=== PATIENT | female | born 1995 | race Two or more races ===

== ENCOUNTER 2017-09-11 15:50 | Emergency (ER) | payer OTHER ==
[2017-09-11] MEDS ORDERED: NS 0.9% 1000 ML* 1,000 ML IV ONE (17:40)
[2017-09-11 18:18] LABS: Hematocrit 39 % (35-47); Hemoglobin 12.7 g/dl (12.0-16.0); Mean Corpuscular HGB Conc 33 g/dl (31-36); Mean Corpuscular Hemoglobin 27 pg (27-31); Mean Corpuscular Volume 83 fL (80-97); Mean Platelet Volume 8 um3 (7.4-10.4); Red Blood Count 4.65 10^6/ul (4.0-5.4); Red Cell Distribution Width 15 % (10.5-15); White Blood Count 7.3 10^3/ul (3.5-10.8)
[2017-09-11 18:29] LABS: ALT 59 U/L (7-52); AST 31 U/L (13-39); Albumin 4.1 g/dL (3.2-5.2); Alkaline Phosphatase 53 U/L (34-104); Anion Gap 6 mmol/L (2-11); BUN/Creatinine Ratio 9.8 (8-20); Blood Urea Nitrogen 6 mg/dL (6-24); C Reactive Protein 10.52 mg/L (< 5.00); CO2 Carbon Dioxide 27 mmol/L (22-32); Calcium 9.4 mg/dL (8.6-10.3); Chloride 102 mmol/L (101-111); EGFR African American 160.8 (>60); Globulin 3.1 g/dL (2-4); Glucose 85 mg/dL (70-100); Lipase < 10 U/L (11.0-82.0); Potassium 3.8 mmol/L (3.5-5.0); Sodium 135 mmol/L (133-145); Total Protein 7.2 g/dL (6.4-8.9)
[2017-09-11 18:47] LABS: Urine Bilirubin Negative (Negative); Urine Glucose Negative (Negative); Urine Nitrite Negative (Negative)
--- NOTE | 2017-09-11 20:17 | RAD ---
Indication: Left lower quadrant pain. . Real-time sonography of the was performed. There is a single intrauterine gestation with heart activity at 169 bpm. Amniotic fluid is within normal limits. The mean crown-rump length is 2.3 cm corresponding to gestational age of 9 weeks 0 days. Estimated date of delivery April 11, 2018. Hypoechoic area in the anterior left uterine body may represent a fibroid or contraction. Right ovary measures 2.5 x 2.1 x 2.3 cm. Left ovary measures 2.1 x 1.3 x 1.6 cm. IMPRESSION: Single intrauterine gestation with a gestational age of 9 weeks 0 days. Estimated date of delivery April 11, 2018. Hypoechoic mass is noted in the anterior left uterine fundus which may represent a fibroid or a contraction.
--- NOTE | 2017-09-11 20:28 | ED ---
Angel Thibodeaux Thomas, scribed for Munira Avelar MD on 09/11/17 at 2025 . Progress - Progress Note Progress Note: The patient is a sign out from the previous ED attending, pending ultrasound and awaiting disposition. ultrasound shows Single intrauterine gestation with a gestational age of 9 weeks 0 days. Estimated date of delivery April 11, 2018. Hypoechoic mass is noted in the anterior left uterine fundus which may represent a fibroid or a contraction. ED physician has reviewed this report and agrees. Patient will be discharged home with follow up by NUTRITION TECH. Patient is instructed to take Tylenol for the pain. Condition at discharge is stable. Course/Dx - Diagnoses Provider Diagnoses: First trimester The documentation as recorded by the Angel redd Thomas accurately reflects the service I personally performed and the decisions made by Valentino denney Abdul, MD.
[2017-09-11 21:53] VITALS: BP 132/72
--- NOTE | 2017-09-12 08:03 | ED ---
Jose Thibodeaux Angela, scribed for Filippo Alanis MD on 09/11/17 at 1730 . Abdominal Pain/Female - HPI Summary HPI Summary: This pt is a 22 y/o female, currently , c/o LLQ pain x4 days. Pt reports that she does not know how far along she is in her . Pt additionally c/o nausea, epigastric abd discomfort. She denies vaginal bleeding , vaginal discharge, constipation, dysuria. She currently rates her pain 8/10 in severity. LMP: July 03. - History of Current Complaint Chief Complaint: EDAbdPain Stated Complaint: UNKOWN PREGGNANCY ABD PAIN Hx Obtained From: Patient ?: Yes - unknown weeks Onset/Duration: Lasting Days, Still Present Timing: Constant Severity Currently: Severe Pain Intensity: 8 Pain Scale Used: 0-10 Numeric Location: Discrete At: LLQ Radiates: No Associated Signs and Symptoms: Positive: Nausea. Negative: Constipation, Urinary Symptoms, Vaginal Bleeding, Vaginal Discharge, Vomiting Allergies/Adverse Reactions: Allergies Allergy/AdvReac Type Severity Reaction Status Date / Time No Known Allergies Allergy Verified 09/11/17 21:53 PMH/Surg Hx/FS Hx/Imm Hx Endocrine/Hematology History: Denies: Hx Diabetes Cardiovascular History: Denies: Hx Hypertension - Surgical History Surgery Procedure, Year, and Place: appendectomy Infectious Disease History: No Infectious Disease History: Denies: Traveled Outside the [place] in Last 30 Days - Family History Known Family History: Negative: Cardiac Disease, Hypertension, Diabetes - Social History Alcohol Use: None Substance Use Type: Reports: None Smoking Status (MU): Never Smoked Tobacco Review of Systems Negative: Fever, Chills Eyes: Negative ENT: Negative Positive: Abdominal Pain - LLQ and epigastric pain, Nausea. Negative: Other - constipation Negative: burning, dysuria, discharge, other - vaginal bleeding Skin: Negative Neurological: Negative All Other Systems Reviewed And Are Negative: Yes Physical Exam - Summary Physical Exam Summary: VITAL SIGNS: Reviewed. GENERAL: Patient is an obese female who is lying comfortable in the stretcher. Patient is not in any acute respiratory distress. HEAD AND FACE: Normocephalic and atraumatic. EYES: PERRLA, EOMI x 2, No injected conjunctiva. EARS: Hearing grossly intact. Ear canals and tympanic membranes are WNL. MOUTH: Oropharynx within normal limits. NECK: Supple, trachea is midline, no adenopathy, no JVD. CHEST: Symmetric, no tenderness at palpation LUNGS: Clear to auscultation bilaterally. No wheezing or crackles. CVS: RRR, S1 and S2 present, no murmurs or gallops appreciated. ABDOMEN: Soft. There is mild left lower quadrant tenderness. No signs of distention. Positive bowel sounds. No rebound no guarding, and no masses palpated. No abdominal bruit or pulsations. EXTREMITIES: FROM in all major joints, no edema, no cyanosis or clubbing. NEURO: Alert and oriented x 3. No acute neurological deficits. Speech is normal. SKIN: Dry and warm Triage Information Reviewed: Yes Vital Signs On Initial Exam: Initial Vitals Temp Pulse Resp BP Pulse Ox 97.0 F 73 20 130/70 100 09/11/17 15:51 09/11/17 15:51 09/11/17 15:51 09/11/17 15:51 09/11/17 15:51 Vital Signs Reviewed: Yes Diagnostics - Vital Signs Vital Signs Temp Pulse Resp BP Pulse Ox 09/11/17 15:51 97.0 F 73 20 130/70 100 - Laboratory Result Diagrams: 09/11/17 17:58 09/11/17 17:58 Lab Statement: Any lab studies that have been ordered have been reviewed, and results considered in the medical decision making process. Abdominal Pain Fem Course/Dx - Course Course Of Treatment: This pt is a 22 y/o female, currently , c/o LLQ pain x4 days. Pt reports that she does not know how far along she is in her . Pt additionally c/o nausea, epigastric abd discomfort. She denies vaginal bleeding, vaginal discharge, constipation, dysuria. She currently rates her pain 8/10 in severity. LMP: July 03. Lab tests were ordered. The pt was placed on a monitor and was given IV fluids. The blood tests and US are pending. I did not do a pelvic exam as there was no vaginal discharge or bleeding. She will be signed out to Dr. Aevlar to follow up on test results and for further assessment and management. - Diagnoses Provider Diagnoses: Abdominal pain Discharge - Discharge Plan Condition: Stable Disposition: OTHER Discharge Disposition Comment: signed out to Dr. Avelar, pending dispo, awaiting labs and US. Patient Education Materials: Acetaminophen (By mouth), (ED), First Trimester (ED) Referrals: Selene Gonzalez MD [Medical Doctor] - 7 Days No Primary Care Phys,NOPCP [Primary Care Provider] - Additional Instructions: Follow up with Dr. Gonzalez, TELECOMMUNICATIONS CLERK, next week. Take Tylenol for the pain. The documentation as recorded by the Jose redd Angela accurately reflects the service I personally performed and the decisions made by me, Filippo Alanis MD.
== END 2017-09-11 20:52 ==
LOC: ED 15:50
DX: Z34.91 Encounter for supervision of normal pregnancy, unspecified, first trimester (principal); R10.32 Left lower quadrant pain; R10.13 Epigastric pain; R11.0 Nausea
CPT/HCPCS: 36415; 76801; 80053; 81003; 83690; 84702; 85025; 86140; 99283

== ENCOUNTER 2017-10-06 09:00 | Emergency (ER) | payer MEDICAID, OTHER ==
[2017-10-06 10:07] LABS: ABS Basophils 0 10^3/ul (0-0.2); ABS Eosinophils 0 10^3/ul (0-0.6); ABS Lymphocytes 1.6 10^3/ul (1.0-4.8); ABS Monocytes 0.3 10^3/ul (0-0.8); ABS Neutrophils 4.5 10^3/ul (1.5-7.7); ABS Nucleated RBC 0 10^3/ul; Eosinophil % 0.4 % (0-6); Hematocrit 38 % (35-47); Hemoglobin 12.9 g/dl (12.0-16.0); Lymphocyte % 24.8 % (25-47); Mean Corpuscular HGB Conc 34 g/dl (31-36); Mean Corpuscular Hemoglobin 28 pg (27-31); Mean Corpuscular Volume 83 fL (80-97); Mean Platelet Volume 8 um3 (7.4-10.4); Nucleated Red Blood Cells % 0; Platelet Count 202 10^3/ul (150-450); Red Blood Count 4.53 10^6/ul (4.0-5.4); Red Cell Distribution Width 15 % (10.5-15); White Blood Count 6.5 10^3/ul (3.5-10.8)
[2017-10-06 10:22] LABS: EGFR Non-African American 127.5 (>60)
[2017-10-06 10:24] LABS: INR 0.99 (0.77-1.02)
--- NOTE | 2017-10-06 10:51 | ED ---
- HPI Summary HPI Summary: Patient is a 13 week F without proper OBGYN care or physician presents to the ED with CC of RUQ pain and vaginal spotting 1x yesterday without symptoms of such today. Physical exam and history obtained through the use of a devulcanizer loader using [employer]. Denies any vaginal bleeding during the until yesterday. RUQ pain is a 2/10 and does not radiate. She notes to some pain over the rib cage as well without difficultly breathing. Denies urinary symptoms, lower abdominal cramping or back pain. Denies any health history or medications but is currently on vitamins. Patient is and non-smoker. Denies history of HTN. - History of Current Complaint Chief Complaint: EDAbdPain Stated Complaint: 3 MONTHS PREG, SPOTING Time Seen by Provider: 10/06/17 09:11 Hx Obtained From: Patient Chief Complaint: Concern for Embryonic Dem, Pain, Vaginal Bleeding Onset/Duration: Started Days Ago Timing: Intermittent Severity: Mild Current Severity: Mild Pain Intensity: 3 Location of Pain: Right Side Character: Colicy Associated Signs and Symptoms: Positive: Vaginal Bleeding or Discharge - Allergies/Home Medications Allergies/Adverse Reactions: Allergies Allergy/AdvReac Type Severity Reaction Status Date / Time No Known Allergies Allergy Verified 09/11/17 21:53 PMH/Surg Hx/FS Hx/Imm Hx Previously Healthy: Yes Endocrine/Hematology History: Denies: Hx Diabetes Cardiovascular History: Denies: Hx Hypertension - Surgical History Surgery Procedure, Year, and Place: appendectomy - Immunization History Hx Pertussis Vaccination: No Immunizations Up to Date: Unable to Obtain/Confirm Infectious Disease History: No Infectious Disease History: Denies: Traveled Outside the [place] in Last 30 Days - Family History Known Family History: Negative: Cardiac Disease, Hypertension, Diabetes - Social History Occupation: Unemployed Lives: With Family Alcohol Use: None Hx Substance Use: No Substance Use Type: Reports: None Hx Tobacco Use: No Smoking Status (MU): Never Smoked Tobacco Review of Systems Constitutional: Negative Negative: Fever, Chills, Fatigue, Skin Diaphoresis Eyes: Negative ENT: Negative Cardiovascular: Negative Respiratory: Negative Positive: Abdominal Pain, Vomiting, Nausea Positive: no symptoms reported, see HPI, other - vaginal spotting x 1 Musculoskeletal: Negative Neurological: Negative All Other Systems Reviewed And Are Negative: Yes Physical Exam - Physical Exam Triage Information Reviewed: Yes Vital Signs Reviewed: Yes Appearance: Positive: Well-Appearing, No Pain Distress Skin: Positive: Warm, Skin Color Reflects Adequate Perfusion Head/Face: Positive: Normal Head/Face Inspection Eyes: Positive: EOMI, SHARON, Conjunctiva Clear Neck: Positive: Supple, No Lymphadenopathy Respiratory/Lung Sounds: Positive: Clear to Auscultation, Breath Sounds Present Cardiovascular: Positive: RRR, Pulses are Symmetrical in both Upper and Lower Extremities Abdomen Description: Positive: Soft, Other: - tenderness to the RUQ and right rib cage Neurological: Positive: Sensory/Motor Intact, Alert, Oriented to Person Place, Time, Speech Normal Psychiatric: Positive: Affect/Mood Appropriate Diagnostics - Vital Signs Vital Signs Temp Pulse Resp BP Pulse Ox 10/06/17 09:14 98.2 F 78 20 140/74 100 - Laboratory Lab Results: Lab Results 10/06/17 10/06/17 10/06/17 Range/Units 09:55 09:55 09:55 WBC 6.5 (3.5-10.8) 10^3/ul RBC 4.53 (4.0-5.4) 10^6/ul Hgb 12.9 (12.0-16.0) g/dl Hct 38 (35-47) % MCV 83 (80-97) fL MCH 28 (27-31) pg MCHC 34 (31-36) g/dl RDW 15 (10.5-15) % Plt Count 202 (150-450) 10^3/ul MPV 8 (7.4-10.4) um3 Neut % (Auto) 69.5 (38-83) % Lymph % (Auto) 24.8 L (25-47) % Maury % (Auto) 4.7 (1-9) % Eos % (Auto) 0.4 (0-6) % Baso % (Auto) 0.6 (0-2) % Absolute Neuts (auto) 4.5 (1.5-7.7) 10^3/ul Absolute Lymphs (auto) 1.6 (1.0-4.8) 10^3/ul Absolute Monos (auto) 0.3 (0-0.8) 10^3/ul Absolute Eos (auto) 0 (0-0.6) 10^3/ul Absolute Basos (auto) 0 (0-0.2) 10^3/ul Absolute Nucleated RBC 0 10^3/ul Nucleated RBC % 0 INR (Anticoag Therapy) 0.99 (0.77-1.02) Sodium (133-145) mmol/L Potassium (3.5-5.0) mmol/L Chloride (101-111) mmol/L Carbon Dioxide (22-32) mmol/L Anion Gap (2-11) mmol/L BUN (6-24) mg/dL Creatinine (0.51-0.95) mg/dL Est GFR ( Amer) (>60) Est GFR (Non-Af Amer) (>60) BUN/Creatinine Ratio (8-20) Glucose (70-100) mg/dL Calcium (8.6-10.3) mg/dL Magnesium (1.9-2.7) mg/dL Iron Total Bilirubin (0.2-1.0) mg/dL AST (13-39) U/L ALT (7-52) U/L Alkaline Phosphatase (34-104) U/L Total Protein (6.4-8.9) g/dL Albumin (3.2-5.2) g/dL Globulin (2-4) g/dL Albumin/Globulin Ratio (1-3) Lipase (11.0-82.0) U/L Beta HCG, Quant Blood Type O Positive 10/06/17 Range/Units 09:55 WBC (3.5-10.8) 10^3/ul RBC (4.0-5.4) 10^6/ul Hgb (12.0-16.0) g/dl Hct (35-47) % MCV (80-97) fL MCH (27-31) pg MCHC (31-36) g/dl RDW (10.5-15) % Plt Count (150-450) 10^3/ul MPV (7.4-10.4) um3 Neut % (Auto) (38-83) % Lymph % (Auto) (25-47) % Maury % (Auto) (1-9) % Eos % (Auto) (0-6) % Baso % (Auto) (0-2) % Absolute Neuts (auto) (1.5-7.7) 10^3/ul Absolute Lymphs (auto) (1.0-4.8) 10^3/ul Absolute Monos (auto) (0-0.8) 10^3/ul Absolute Eos (auto) (0-0.6) 10^3/ul Absolute Basos (auto) (0-0.2) 10^3/ul Absolute Nucleated RBC 10^3/ul Nucleated RBC % INR (Anticoag Therapy) (0.77-1.02) Sodium 133 (133-145) mmol/L Potassium 3.6 (3.5-5.0) mmol/L Chloride 102 (101-111) mmol/L Carbon Dioxide 23 (22-32) mmol/L Anion Gap 8 (2-11) mmol/L BUN 7 (6-24) mg/dL Creatinine 0.60 (0.51-0.95) mg/dL Est GFR ( Amer) 163.9 (>60) Est GFR (Non-Af Amer) 127.5 (>60) BUN/Creatinine Ratio 11.7 (8-20) Glucose 132 H (70-100) mg/dL Calcium 9.0 (8.6-10.3) mg/dL Magnesium 1.7 L (1.9-2.7) mg/dL Iron Pending Total Bilirubin 0.30 (0.2-1.0) mg/dL AST 16 (13-39) U/L ALT 29 (7-52) U/L Alkaline Phosphatase 67 (34-104) U/L Total Protein 6.9 (6.4-8.9) g/dL Albumin 3.9 (3.2-5.2) g/dL Globulin 3.0 (2-4) g/dL Albumin/Globulin Ratio 1.3 (1-3) Lipase < 10 L (11.0-82.0) U/L Beta HCG, Quant Pending Blood Type Result Diagrams: 10/06/17 09:55 10/06/17 09:55 Lab Statement: Any lab studies that have been ordered have been reviewed, and results considered in the medical decision making process. Course/Dx - Course Course Of Treatment: Patient presents with vaginal bleeding (spotting) x 1 day which resolved last evening. She notes to 3 day history of RUQ pain which is also located over the right ribs without difficulty breathing. Vomiting has been present throughout the and last vomit this am. US gallbladder and transvaginal obtained. IMPRESSION: No adnexal masses are noted. There is a single intrauterine gestation with a. gestational age of 13 weeks 0 days. Estimated date of delivery is April 13, 2018. . heart activity is noted at 1 49 bpm. IMPRESSION: NO EVIDENCE OF CHOLELITHIASIS OR BILIARY DUCT DILATATION IS NOTED. SHe is encouraged to take reglan for nausea. Referral to Dr. Russell given for established care. She is Ok with this plan and agrees to return for any worsening symptoms. I have discussed the possibility of pain related to which is normal vs pain from gallbladder. - Diagnoses Provider Diagnoses: Right upper quadrant abdominal pain, Vaginal spotting Discharge - Discharge Plan Condition: Stable Disposition: HOME Prescriptions: Metoclopramide TAB* [Reglan TAB*] 5 mg PO Q6H #30 tab MDD 4 Patient Education Materials: Metoclopramide (By mouth), (ED) Print Language: MACEDONIAN Referrals: Raf Russell MD [Medical Doctor] - No Primary Care Phys,NOPCP [Primary Care Provider] - Additional Instructions: Please follow up with OBGYN - call today to make an appt Reglan as needed for nausea/vomiting
--- NOTE | 2017-10-06 11:24 | RAD ---
Indication: Vaginal bleeding. Real-time sonography of the right upper quadrant was performed. Liver is normal in size. No focal lesions or intrahepatic duct dilatation is noted. Gallbladder demonstrates no calcified gallstones. No pericholecystic fluid or wall thickening is identified. The common duct measures 3.2 mm. The right kidney measures 10.7 x 6.5 x 4.6 cm with no hydronephrosis. The pancreas demonstrates no mass or pancreatic ductal dilatation. Aorta and inferior vena cava are unremarkable. IMPRESSION: NO EVIDENCE OF CHOLELITHIASIS OR BILIARY DUCT DILATATION IS NOTED.
--- NOTE | 2017-10-06 11:26 | RAD ---
Indication: . Real-time sonography of the was performed. There is a single intrarenal gestation with a crown-rump length of 6.7 cm corresponding to gestational age of 13 weeks 0 days. Estimated date of delivery is April 13, 2018. heart activity is noted at 1 49 bpm. movement is noted. There is a anterior fundal placenta. Amniotic fluid is within normal limits. The right ovary measures 2.7 x 2.3 x 1.8 cm. Left ovary measures 2.2 x 1.2 x 1.8 cm. IMPRESSION: No adnexal masses are noted. There is a single intrauterine gestation with a gestational age of 13 weeks 0 days. Estimated date of delivery is April 13, 2018. heart activity is noted at 1 49 bpm.
[2017-10-06 12:54] VITALS: BP 126/55
== END 2017-10-06 12:53 | disposition home or self-care (01) ==
LOC: ED 09:00
DX: O26.851 Spotting complicating pregnancy, first trimester (principal); O26.891 Other specified pregnancy related conditions, first trimester; Z3A.13 13 weeks gestation of pregnancy; R10.11 Right upper quadrant pain
CPT/HCPCS: 36415; 76705; 76801; 80053; 83540; 83690; 83735; 84702; 85025; 85610; 86900; 86901; 99282

== ENCOUNTER 2018-02-09 13:09 | Emergency (ER) | payer MEDICAID, OTHER ==
[2018-02-09 13:43] VITALS: BP 106/78
[2018-02-09 13:58] LABS: ABS Basophils 0 10^3/ul (0-0.2); ABS Eosinophils 0.1 10^3/ul (0-0.6); ABS Lymphocytes 1.6 10^3/ul (1.0-4.8); ABS Monocytes 0.5 10^3/ul (0-0.8); ABS Neutrophils 5.4 10^3/ul (1.5-7.7); ABS Nucleated RBC 0 10^3/ul; Eosinophil % 0.9 % (0-6); Hematocrit 38 % (35-47); Hemoglobin 12.6 g/dl (12.0-16.0); Lymphocyte % 21.2 % (25-47); Mean Corpuscular HGB Conc 34 g/dl (31-36); Mean Corpuscular Hemoglobin 28 pg (27-31); Mean Corpuscular Volume 83 fL (80-97); Nucleated Red Blood Cells % 0.1; Platelet Count 197 10^3/ul (150-450); Red Blood Count 4.52 10^6/ul (4.0-5.4); Red Cell Distribution Width 13 % (10.5-15); White Blood Count 7.5 10^3/ul (3.5-10.8)
[2018-02-09 14:12] LABS: EGFR Non-African American 150.3 (>60)
--- NOTE | 2018-02-09 15:02 | RAD ---
HISTORY: 7 months , leaking fluid, decreased movement. The gestational age by dates is: 31 weeks, 2 days COMPARISONS: October 06, 2017 TECHNIQUE: Multiple transverse and longitudinal ultrasound images were obtained of the gravid uterus using Grayscale, color Doppler, and M-mode Doppler imaging. FINDINGS: /PLACENTAL EVALUATION: Number of fetuses: Single Presentation: Cephalic cardiac activity: 144 bpm Gross motion: Observed Placenta position: Anterior Amniotic fluid volume: Normal JENNIFER: 15.4 cm. This is just over the median for this gestational age. BIOMETRY: Biparietal diameter: 7.72 cm 31 weeks, 0 days Head circumference: 30.07 cm 33 weeks, 3 days Abdominal circumference: 30.32 cm 34 weeks, 2 days Femur length: 6.02 cm 31 weeks, 3 days HC/AC: 0.99 Estimated weight: 2105 grams, +/- 308 grams GESTATIONAL AGE: The composite gestational age is: 32 weeks, 4 days. The JAMEL is: April 02, 2018. This is concordant with age by dates and by previous ultrasound. ANATOMY: cranium: Within normal limits ventricles: Within normal limits choroid plexus: Within normal limits cerebellum: Within normal limits posterior fossa: Within normal limits face/orbits/lips: Within normal limits spine: Within normal limits heart: Normal 4 chamber diaphragm: Within normal limits stomach: Within normal limits kidneys: Within normal limits bladder: Within normal limits cord: The cord and cord insertion are not well visualized. CERVIX: The cervix is not well visualized OTHER: None IMPRESSION: SINGLE LIVE INTRAUTERINE GESTATION IN CEPHALIC PRESENTATION AT 32 WEEKS, 4 DAYS BY COMPOSITE GESTATIONAL AGE.
--- NOTE | 2018-02-09 18:31 | ED ---
Ryan Thibodeaux Stephanie, scribed for Adrián Nunez MD on 02/09/18 at 1339 . Abdominal Pain/Female - HPI Summary HPI Summary: The pt is a 22 y/o F presenting to the ED with c/o abd pain that began last night. Symptoms include loss of fluid from the vagina and decreased movement. The pt is approximately 7 months and is due April 11. She denies fever and vomiting. - History of Current Complaint Chief Complaint: EDOBProblems Stated Complaint: OB PROBLEM Hx Obtained From: Patient ?: Yes Onset/Duration: Sudden Onset, Lasting Hours, Still Present Timing: Constant Severity Currently: Mild Pain Intensity: 4 Pain Scale Used: 0-10 Numeric Location: Epigastric Radiates: No Aggravating Factor(s): Nothing Alleviating Factor(s): Nothing Associated Signs and Symptoms: Negative: Fever, Vomiting Allergies/Adverse Reactions: Allergies Allergy/AdvReac Type Severity Reaction Status Date / Time No Known Allergies Allergy Verified 02/09/18 14:53 PMH/Surg Hx/FS Hx/Imm Hx Endocrine/Hematology History: Denies: Hx Diabetes Cardiovascular History: Denies: Hx Hypertension Sensory History: Denies: Hx Legally Blind EENT History: Denies: Hx Deafness - Surgical History Surgery Procedure, Year, and Place: appendectomy Infectious Disease History: No Infectious Disease History: Denies: Traveled Outside the [place] in Last 30 Days - Family History Known Family History: Negative: Cardiac Disease, Hypertension, Diabetes - Social History Occupation: Unemployed Lives: Alone Alcohol Use: None Hx Substance Use: No Substance Use Type: Reports: None Hx Tobacco Use: No Smoking Status (MU): Never Smoked Tobacco Have You Smoked in the Last Year: No Review of Systems Negative: Fever Positive: Abdominal Pain. Negative: Vomiting All Other Systems Reviewed And Are Negative: Yes Physical Exam - Summary Physical Exam Summary: Appearance: Well appearing, no pain distress Skin: warm, dry, reflects adequate perfusion Head/face: normal Eyes: EOMI, SHARON ENT: normal Neck: supple, non-tender Respiratory: CTA, breath sounds present, Tachypnic Cardiovascular: regular rhythm, tachycardic, pulses symmetrical Abdomen: non-tender, soft, Fundus palpable at the xiphoid Bowel Sounds: present Musculoskeletal: normal, strength/ROM intact, No LE edema bilaterally Neuro: normal, sensory motor intact, A&Ox3 Abdominal US:Gross movement, head is down in vertex position, heart tone, very minimal fluid Triage Information Reviewed: Yes Vital Signs On Initial Exam: Initial Vitals Temp Pulse Resp BP Pulse Ox 97.4 F 108 16 128/69 100 02/09/18 13:17 02/09/18 13:17 02/09/18 13:17 02/09/18 13:17 02/09/18 13:17 Vital Signs Reviewed: Yes Diagnostics - Vital Signs Vital Signs Temp Pulse Resp BP Pulse Ox 02/09/18 13:17 97.4 F 108 16 128/69 100 - Laboratory Lab Results: Lab Results 02/09/18 02/09/18 02/09/18 Range/Units 13:40 13:40 13:40 WBC 7.5 (3.5-10.8) 10^3/ul RBC 4.52 (4.0-5.4) 10^6/ul Hgb 12.6 (12.0-16.0) g/dl Hct 38 (35-47) % MCV 83 (80-97) fL MCH 28 (27-31) pg MCHC 34 (31-36) g/dl RDW 13 (10.5-15) % Plt Count 197 (150-450) 10^3/ul MPV 8.0 (7.4-10.4) um3 Neut % (Auto) 71.2 (38-83) % Lymph % (Auto) 21.2 L (25-47) % [place] % (Auto) 6.6 (0-7) % Eos % (Auto) 0.9 (0-6) % Baso % (Auto) 0.1 (0-2) % Absolute Neuts (auto) 5.4 (1.5-7.7) 10^3/ul Absolute Lymphs (auto) 1.6 (1.0-4.8) 10^3/ul Absolute Monos (auto) 0.5 (0-0.8) 10^3/ul Absolute Eos (auto) 0.1 (0-0.6) 10^3/ul Absolute Basos (auto) 0 (0-0.2) 10^3/ul Absolute Nucleated RBC 0 10^3/ul Nucleated RBC % 0.1 Sodium 136 L (139-145) mmol/L Potassium 3.8 (3.5-5.0) mmol/L Chloride 105 (101-111) mmol/L Carbon Dioxide 23 (22-32) mmol/L Anion Gap 8 (2-11) mmol/L BUN 6 (6-24) mg/dL Creatinine 0.52 (0.51-0.95) mg/dL Est GFR ( Amer) 193.3 (>60) Est GFR (Non-Af Amer) 150.3 (>60) BUN/Creatinine Ratio 11.5 (8-20) Glucose 143 H (70-100) mg/dL Calcium 9.3 (8.6-10.3) mg/dL Total Bilirubin 0.30 (0.2-1.0) mg/dL AST 16 (13-39) U/L ALT 20 (7-52) U/L Alkaline Phosphatase 172 H (34-104) U/L Total Protein 6.7 (6.4-8.9) g/dL Albumin 3.4 (3.2-5.2) g/dL Globulin 3.3 (2-4) g/dL Albumin/Globulin Ratio 1.0 (1-3) Blood Type O Positive Antibody Screen Negative Result Diagrams: 02/09/18 13:40 02/09/18 13:40 Lab Statement: Any lab studies that have been ordered have been reviewed, and results considered in the medical decision making process. Abdominal Pain Fem Course/Dx - Course Course Of Treatment: On arrival I placed a bedside ultrasound on the fetus. There is some movement evident as well as there heart tones. Her fluid did appear low however this was a limited/preliminary ultrasound performed by me. She does have reported leaking of clear fluid vaginally. I then discussed the case with the drink waiter who wishes for the patient to be taken directly to the labor and delivery suite. She was transferred from the ER to that location. She remained stable throughout. Her blood was drawn here. - Diagnoses Provider Diagnoses: premature rupture of membranes, Decreased movement Discharge - Sign-Out/Discharge Documenting (check all that apply): Discharge/Admit/Transfer - discharge - Discharge Plan Condition: Stable Disposition: TRANSFER TO OB ([facility]) Referrals: No Primary Care Phys,NOPCP [Primary Care Provider] - - Billing Disposition and Condition Condition: STABLE Disposition: TRANS-OB The documentation as recorded by the scribe, Ryan,Tania accurately reflects the service I personally performed and the decisions made by me, Adrián Nunez MD.
== END 2018-02-09 13:43 | disposition other institution (70) ==
LOC: ED 13:09
DX: O42.913 Preterm premature rupture of membranes, unspecified as to length of time between rupture and onset of labor, third trimester (principal); R10.9 Unspecified abdominal pain; Z3A.30 30 weeks gestation of pregnancy
CPT/HCPCS: 36415; 76815; 80053; 85025; 86850; 86900; 86901; 99282

== ENCOUNTER 2018-03-17 15:07 | Emergency (ER) | payer OTHER ==
[2018-03-17 16:51] LABS: ABS Basophils 0 10^3/ul (0-0.2); ABS Eosinophils 0 10^3/ul (0-0.6); ABS Lymphocytes 2.2 10^3/ul (1.0-4.8); ABS Monocytes 0.5 10^3/ul (0-0.8); ABS Neutrophils 4.6 10^3/ul (1.5-7.7); ABS Nucleated RBC 0 10^3/ul; Eosinophil % 0.6 % (0-6); Hematocrit 37 % (35-47); Hemoglobin 12.6 g/dl (12.0-16.0); Lymphocyte % 30.2 % (25-47); Mean Corpuscular HGB Conc 34 g/dl (31-36); Mean Corpuscular Hemoglobin 28 pg (27-31); Mean Corpuscular Volume 82 fL (80-97); Mean Platelet Volume 8.1 um3 (7.4-10.4); Nucleated Red Blood Cells % 0.1; Platelet Count 177 10^3/ul (150-450); Red Blood Count 4.52 10^6/ul (4.0-5.4); Red Cell Distribution Width 14 % (10.5-15); White Blood Count 7.4 10^3/ul (3.5-10.8)
[2018-03-17 17:07] LABS: Uric Acid 4.1 mg/dL (2.3-6.6)
[2018-03-17 17:36] LABS: EGFR Non-African American 101.6 (>60)
--- NOTE | 2018-03-17 17:50 | RAD ---
Indication: Bilateral leg edema Duplex Doppler sonography of the deep venous system of both lower extremities was performed. The left common femoral vein, proximal greater saphenous vein, proximal deep femoral vein, femoral vein, popliteal vein, posterior tibial vein and peroneal vein is patent and compressible. The right lower extremity demonstrates venous stasis. Augmentation does demonstrate some flow although the patient would not allow compression and therefore the right lower extremity study is limited. There are lymph nodes in the area of pain in the right proximal thigh. IMPRESSION: The left lower extremity demonstrates no evidence of deep venous thrombosis. Slow flow is noted in the deep venous system of the right lower extremity although the patient would not allow compression and therefore is limited in evaluation.
[2018-03-17] MEDS ORDERED: Acetaminophen TAB* 325 MG PO ONE (18:03)
[2018-03-17 19:05] LABS: Urine Appearance Cloudy; Urine Blood Negative (Negative); Urine Color Yellow; Urine Ketones Trace (Negative); Urine Protein 2+(100 mg/dL) (Negative); Urine Specific Gravity 1.017 (1.010-1.030); Urine Urobilinogen Negative (Negative)
[2018-03-17 20:07] VITALS: BP 142/94
--- NOTE | 2018-03-17 21:18 | ED ---
Jose Thibodeaux Angela, scribed for Ryan Blum MD on 03/17/18 at 1809 . Progress - Progress Note Progress Note: This pt was signed out by Dr. Alanis, pending disposition, awaiting US of bilateral lower extremities. US of bilateral lower extremities, as read by radiologist IMPRESSION: The left lower extremity demonstrates no evidence of deep venous thrombosis. Slow flow is noted in the deep venous system of the right lower extremity although the patient would not allow compression and therefore is limited in evaluation. Dr. Blum has reviewed this radiology report. Re-Evaluation - Re-Evaluation First Eval Re-Evaluation Time: 19:00 Comment: Reviewed the ultrasound results with the pt. Second Eval Re-Evaluation Time: 19:44 Comment: I discussed Dr. Chaudhary's recommendation with the pt. She will be discharged home. Course/Dx - Course Course Of Treatment: Ms. Trell Cates presented to the emergency department complaining of pain and swelling in her right leg. She is 36 weeks and was sent over by Dr. Thomson. Venous Doppler on the right did show flow but was limited because she had significant pain and would not allow compression. There was lymphadenopathy in the area of pain. This result suggests DVT is less likely and her exam confirms that she is acutely tender in the proximal common femoral canal area. I recommended close follow-up, she may need an antibiotic. - Diagnoses Provider Diagnoses: Leg pain - Provider Notifications Discussed Care Of Patient With: Edwin Chaudhary Time Discussed With Above Provider: 19:35 Instructed by Provider To: Other - I discussed pt care with Dr. Chaudhary, OB, who reports the pt probably has ligament pain and can be discharged home. Discharge - Sign-Out/Discharge Documenting (check all that apply): Discharge/Admit/Transfer - Discharge, Receiving Sign-Out Receiving patient FROM: Filippo Alanis - Discharge Plan Condition: Stable Disposition: HOME Prescriptions: traMADol TAB* [Ultram*] 50 mg PO Q6HR PRN #20 tab MDD 4 PRN Reason: Pain Patient Education Materials: Leg Pain (ED) Print Language: CROATIAN Referrals: Raf Russell MD [Medical Doctor] - Additional Instructions: Please follow up with Dr. Russell, OB. RETURN TO THE ED FOR ANY WORSENING SYMPTOMS. - Billing Disposition and Condition Condition: STABLE Disposition: Home The documentation as recorded by the Jose redd Angela accurately reflects the service I personally performed and the decisions made by me, Ryan Blum MD.
--- NOTE | 2018-03-18 11:41 | ED ---
Jose Thibodeaux Angela, scribed for Filippo Alanis MD on 03/17/18 at 1627 . Lower Extremity - HPI Summary HPI Summary: This pt is a 22 y/o female, currently 36 weeks , presenting to [facility] for bilateral lower extremity swelling and pain. Pt reports the onset of lower extremity swelling and pain in the legs began approximately 10 days ago. Denies any trauma or injury to her legs. Pt notes that since 4 days ago she has had difficulty getting up from bed secondary to pain. Additionally she reports she has to drag her feet due to the severe pain when ambulating. Pt has noticed her legs have began to bruise. Denies vaginal discharge, vaginal bleeding, SOB. Pt does reports headache, nausea, and dysuria. She is able to feel movements. Her OB is Dr. Raf Russell. Pt had a ultrasound today and was referred to the ED for bilateral LE swelling and pain. - History of Current Complaint Chief Complaint: EDExtremityLower Stated Complaint: TOE INJURY Hx Obtained From: Patient Mechanism Of Injury: Other - No trauma or injury Onset of Pain: Days Onset/Duration: Days Severity Currently: Severe Pain Intensity: 9 Pain Scale Used: 0-10 Numeric Timing: Lasting Days Location: Is Discrete @ - bilateral lower extremities Associated Signs And Symptoms: Positive: Swelling, Bruising. Negative: Fever, Weakness, Dizziness, Abdominal Pain Aggravating Factor(s): Ambulation Alleviating Factor(s): Rest Able to Bear Weight: Yes - dragging her feet - Allergies/Home Medications Allergies/Adverse Reactions: Allergies Allergy/AdvReac Type Severity Reaction Status Date / Time No Known Allergies Allergy Verified 03/17/18 15:13 Home Medications: Home Medications Vitamin TAB* 1 tab PO DAILY 03/17/18 [History Confirmed 03/17/18] PMH/Surg Hx/FS Hx/Imm Hx Endocrine/Hematology History: Denies: Hx Diabetes Cardiovascular History: Denies: Hx Hypertension History: Reports: Hx Kidney Infection - hx UTI - Surgical History Surgery Procedure, Year, and Place: appendectomy Infectious Disease History: No Infectious Disease History: Denies: Traveled Outside the [place] in Last 30 Days - Family History Known Family History: Negative: Cardiac Disease, Hypertension, Diabetes - Social History Alcohol Use: None Hx Substance Use: No Substance Use Type: Reports: None Hx Tobacco Use: No Smoking Status (MU): Never Smoked Tobacco Have You Smoked in the Last Year: No Review of Systems Negative: Fever Negative: Chest Pain Negative: Shortness Of Breath Positive: Nausea Negative: discharge, other - vaginal bleeding Musculoskeletal: Other - bilateral lower extremity pain Positive: Edema - in bilateral LE Positive: Bruising - right thigh Positive: Headache All Other Systems Reviewed And Are Negative: Yes Physical Exam - Summary Physical Exam Summary: VITAL SIGNS: Reviewed. GENERAL: Patient is an obese female who is lying comfortable in the stretcher. Patient is not in any acute respiratory distress. HEAD AND FACE: No signs of trauma. No ecchymosis, hematomas or skull depressions. No sinus tenderness. EYES: PERRLA, EOMI x 2, No injected conjunctiva, no nystagmus. EARS: Hearing grossly intact. Ear canals and tympanic membranes are within normal limits. MOUTH: Oropharynx within normal limits. NECK: Supple, trachea is midline, no adenopathy, no JVD, no carotid bruit, no c- spine tenderness, neck with full ROM. CHEST: Symmetric, no tenderness at palpation LUNGS: Clear to auscultation bilaterally. No wheezing or crackles. CVS: Regular rate and rhythm, S1 and S2 present, no murmurs or gallops appreciated. ABDOMEN: Soft, non-tender. No signs of distention. No rebound no guarding, and no masses palpated. Bowel sounds are normal. EXTREMITIES: FROM in all major joints, no cyanosis or clubbing. Tenderness in both calfs. Tenderness in both thighs. Right leg is more swollen than the left. Good femoral and pedal pulses. NEURO: Alert and oriented x 3. No acute neurological deficits. Speech is normal and follows commands. SKIN: Dry and warm Triage Information Reviewed: Yes Vital Signs On Initial Exam: Initial Vitals Temp Pulse Resp BP Pulse Ox 96.8 F 86 16 145/85 99 03/17/18 15:09 03/17/18 15:09 03/17/18 15:03/17/18 15:03/17/18 15:09 Vital Signs Reviewed: Yes Diagnostics - Vital Signs Vital Signs Temp Pulse Resp BP Pulse Ox 03/17/18 15:09 96.8 F 86 16 145/85 99 - Laboratory Result Diagrams: 03/17/18 16:38 03/17/18 16:38 Lab Statement: Any lab studies that have been ordered have been reviewed, and results considered in the medical decision making process. Lower Extremity Course/Dx - Course Assessment/Plan: Pt is a 22 y/o female, currently 36 weeks , who presents with bilateral lower extremity swelling and pain. Pt reports the onset of lower extremity swelling began when she became . She states that her pain in the legs began approximately 10 days ago. Denies any trauma or injury to her legs. Pt notes that since 4 days ago she has had difficulty getting up from bed secondary to pain. Additionally she reports she has to drag her feet due to the severe pain when ambulating. Pt has noticed her legs have began to bruise. Test results without any significant abnormalities except for CRP of 18.9. She is awaiting for an ultrasound of bilateral lower extremities. She is hemodynamicallly stable, alert and oriented x3. I will sign out this pt to Dr. Blum to follow up on the ultrasound and if need be to discuss the case with Dr. Russell. - Diagnoses Provider Diagnoses: Bilateral lower extremity edema, Bilateral lower extremity pain Discharge - Sign-Out/Discharge Documenting (check all that apply): Sign-Out Patient Signing out patient TO: Ryan Blum - Discharge Plan Referrals: Raf Russell MD [Medical Doctor] - The documentation as recorded by the Jose redd Angela accurately reflects the service I personally performed and the decisions made by , Filippo Alanis MD.
== END 2018-03-17 20:06 | disposition home or self-care (01) ==
LOC: ED 15:07
DX: O12.03 Gestational edema, third trimester (principal); O26.893 Other specified pregnancy related conditions, third trimester; M79.662 Pain in left lower leg; M79.661 Pain in right lower leg; Z3A.36 36 weeks gestation of pregnancy
CPT/HCPCS: 36415; 80053; 81003; 81015; 84550; 85025; 85652; 86140; 87086; 93970; 99282; A9270-GY

== ENCOUNTER 2018-03-26 16:27 | Inpatient (IN) | payer OTHER ==
[2018-03-26] MEDS ORDERED: Sodium Citrate/Citric Acid* 15 ML UDC PO ONE ×2 (16:41→17:32)
[2018-03-26] MEDS ORDERED: ceFOXitin 2 GM IVPREMIX* 2 GM/50 ML BAG IVPB ONE (17:00)
[2018-03-26 17:09] LABS: ABS Basophils 0.1 10^3/ul (0-0.2); ABS Eosinophils 0 10^3/ul (0-0.6); ABS Lymphocytes 1.9 10^3/ul (1.0-4.8); ABS Monocytes 0.4 10^3/ul (0-0.8); ABS Neutrophils 6.1 10^3/ul (1.5-7.7); ABS Nucleated RBC 0 10^3/ul; Eosinophil % 0.3 % (0-6); Hematocrit 37 % (35-47); Hemoglobin 12.3 g/dl (12.0-16.0); Lymphocyte % 22.5 % (25-47); Mean Corpuscular HGB Conc 34 g/dl (31-36); Mean Corpuscular Hemoglobin 27 pg (27-31); Mean Corpuscular Volume 80 fL (80-97); Mean Platelet Volume 8.4 um3 (7.4-10.4); Nucleated Red Blood Cells % 0.1; Platelet Count 220 10^3/ul (150-450); Red Blood Count 4.56 10^6/ul (4.00-5.40); Red Cell Distribution Width 14 % (10.5-15); White Blood Count 8.5 10^3/ul (3.5-10.8)
[2018-03-26] MEDS ORDERED: OXYTOCIN* 10 UNITS/ML 1 ML VIAL ONE (17:16)
[2018-03-26] MEDS ORDERED: Dexamethasone IV* 4 MG/ML 1 ML (4 MG) ONE (17:16)
[2018-03-26] MEDS ORDERED: Bupivacaine-MPF SPINAL* 7.5 MG/ML - 2ML AMP ONE (17:16)
[2018-03-26] MEDS ORDERED: Lidocaine 2% PF * 5 ML VIAL ONE (17:17)
[2018-03-26 17:24] LABS: INR 0.89 (0.77-1.02)
[2018-03-26 17:29] LABS: EGFR Non-African American 84.1 (>60); Uric Acid 4.4 mg/dL (2.3-6.6)
[2018-03-26] MEDS ORDERED: Buffered Lidocaine 0.9% SYRIN* 5 ML/SYR SYRINGE INTRADERM ONE (17:32)
--- NOTE | 2018-03-26 17:38 | HP ---
General Information - General Information Maternal Age: 22 Grav: 1 Para: 0 SAB: 0 IEA: 0 Estimated Due Date: 04/11/18 Determined By: Early Ultrasound Gestational Age in Weeks and Days: 37 Weeks and 5 Days Maternal Blood Type and Rh: O Positive - Results this Serology/RPR Result: Non-Reactive Rubella Result: Immune HBsAg Result: Negative HIV Result: Negative GBS Culture Result: Positive Past Medical History Delivery History: See Records Pertinent Past Medical History: Non-Contributory Pertinent Past Surgical History: See Records - Appendectomy 2013 Pertinent Family History: Non-Contributory Review of Systems Constitutional: Uncomfortable CV Complaint: No Respiratory: Shortness of Breath: No Gastrointestinal: No Nausea/Vomiting, Normal Bowel Movement Genitourinary: No Dysuria, No Bleeding, No Leaking Fluid Musculoskeletal: Contractions Neurological: No Headache, No Visual Changes Movement: Normal - Comments No upper abdominal pain Exam Allergies/Adverse Reactions: Allergies No Known Allergies Allergy (Verified 03/26/18 16:54) Temp 98.1 BP 131/91 P 90-103 RR 20 Pox 99% RA Lab Values - Entire Visit: Laboratory Tests 03/26/18 03/26/18 03/26/18 16:45 16:45 16:45 WBC RBC Hgb Hct MCV MCH MCHC RDW Plt Count MPV Neut % (Auto) Lymph % (Auto) Miner % (Auto) Eos % (Auto) Baso % (Auto) Absolute Neuts (auto) Absolute Lymphs (auto) Absolute Monos (auto) Absolute Eos (auto) Absolute Basos (auto) Absolute Nucleated RBC Nucleated RBC % INR (Anticoag Therapy) 0.89 APTT 25.8 L Fibrinogen 621.9 H D-Dimer, Quantitative > 1050 H Sodium 134 L Chloride 102 Carbon Dioxide 20 L BUN 9 Creatinine 0.86 Est GFR ( Amer) 108.2 Est GFR (Non-Af Amer) 84.1 BUN/Creatinine Ratio 10.5 Glucose 98 Uric Acid 4.4 Calcium 9.1 Total Bilirubin 0.40 ALT 17 Alkaline Phosphatase 199 H Total Protein 6.8 Albumin 3.0 L Globulin 3.8 Albumin/Globulin Ratio 0.8 L Blood Type O Positive 03/26/18 16:45 WBC 8.5 RBC 4.56 Hgb 12.3 Hct 37 MCV 80 MCH 27 MCHC 34 RDW 14 Plt Count 220 MPV 8.4 Neut % (Auto) 71.6 Lymph % (Auto) 22.5 L Miner % (Auto) 4.9 Eos % (Auto) 0.3 Baso % (Auto) 0.7 Absolute Neuts (auto) 6.1 Absolute Lymphs (auto) 1.9 Absolute Monos (auto) 0.4 Absolute Eos (auto) 0 Absolute Basos (auto) 0.1 Absolute Nucleated RBC 0 Nucleated RBC % 0.1 INR (Anticoag Therapy) APTT Fibrinogen D-Dimer, Quantitative Sodium Chloride Carbon Dioxide BUN Creatinine Est GFR ( Amer) Est GFR (Non-Af Amer) BUN/Creatinine Ratio Glucose Uric Acid Calcium Total Bilirubin ALT Alkaline Phosphatase Total Protein Albumin Globulin Albumin/Globulin Ratio Blood Type Laboratory Results - last 24 hr 03/26/18 03/26/18 03/26/18 16:45 16:45 16:45 WBC RBC Hgb Hct MCV MCH MCHC RDW Plt Count 220 MPV Neut % (Auto) Lymph % (Auto) Miner % (Auto) Eos % (Auto) Baso % (Auto) Absolute Neuts (auto) Absolute Lymphs (auto) Absolute Monos (auto) Absolute Eos (auto) Absolute Basos (auto) Absolute Nucleated RBC Nucleated RBC % Schistocytes Absent INR (Anticoag Therapy) 0.89 APTT 25.8 L Fibrinogen 621.9 H D-Dimer, Quantitative > 1050 H Sodium 134 L Potassium TNP Chloride 102 Carbon Dioxide 20 L Anion Gap 12 H BUN 9 Creatinine 0.86 Est GFR ( Amer) 108.2 Est GFR (Non-Af Amer) 84.1 BUN/Creatinine Ratio 10.5 Glucose 98 Uric Acid 4.4 Calcium 9.1 Total Bilirubin 0.40 AST TNP ALT 17 Alkaline Phosphatase 199 H Total Protein 6.8 Albumin 3.0 L Globulin 3.8 Albumin/Globulin Ratio 0.8 L Blood Type O Positive 03/26/18 16:45 WBC 8.5 RBC 4.56 Hgb 12.3 Hct 37 MCV 80 MCH 27 MCHC 34 RDW 14 Plt Count 220 MPV 8.4 Neut % (Auto) 71.6 Lymph % (Auto) 22.5 L Miner % (Auto) 4.9 Eos % (Auto) 0.3 Baso % (Auto) 0.7 Absolute Neuts (auto) 6.1 Absolute Lymphs (auto) 1.9 Absolute Monos (auto) 0.4 Absolute Eos (auto) 0 Absolute Basos (auto) 0.1 Absolute Nucleated RBC 0 Nucleated RBC % 0.1 Schistocytes INR (Anticoag Therapy) APTT Fibrinogen D-Dimer, Quantitative Sodium Potassium Chloride Carbon Dioxide Anion Gap BUN Creatinine Est GFR ( Amer) Est GFR (Non-Af Amer) BUN/Creatinine Ratio Glucose Uric Acid Calcium Total Bilirubin AST ALT Alkaline Phosphatase Total Protein Albumin Globulin Albumin/Globulin Ratio Blood Type - Measurements Height: 5 ft 8 in Weight: 263 lb Weight in lbs: 263.00 Body Mass Index (BMI): 39.9 Pre- Weight: 246 lb Weight Gained This : 17.00 lbs and 0 ozs - Exam Abdomen: No Upper Quadrant Pain Breast: Breast Exam Deferred CVA: No CVA Tenderness Extremities: Edema - Rt>left Venous doppler study ordered r/o superficial vs deep venous thrombophlebitis Heart: Normal Rhythm/Heart Sounds HEENT: No Significant Findings Lungs: Clear Bilaterally Rectal: Rectal Exam Deferred Reflexes: DTR 2+ Thyroid: No Thyromegaly - Abdominal Exam Abdomen Exam: Fundal Height Consistent with Dates Targeted Exam Findings See L&D Outpatient Visit Provider Note for Findings: N/A Cervical Exam: 4cm Effacement: 90% Station: -1 Presenting Part: Vertex Membrane Status: Intact Bleeding/Discharge: None EFM Findings - External Monitor Findings Baseline Heart Rate: 130 External Monitor Findings: Accelerations Present, No Pattern of Variable or Late Decelerations Contractions: Regular, Moderate, < 45 Seconds Assessment/Plan - Reason for Visit Reason for Visit: 37 5/7 weeks EGA, Preeclampsia, Gestational diabetes uncontrolled, macrosomia on Ultrasound. B/l lower extremity edema/pain, most likely superficial thrombophlebitis, afebile, nonsupurative. - Obstetrical Risk Factors Obstetrical Risk Factors: GBS Positive, PreEclampsia, Gestational Diabetes - Plan Plan: Active Labor, Expedite C/S Delivery, Antibiotic Prophylaxis
[2018-03-26 17:41] LABS: Schistocytes ABSENT
[2018-03-26 17:42] LABS: Platelet Count 220 10^3/ul (150-450)
--- NOTE | 2018-03-26 18:03 | RAD ---
INDICATION: Bilateral lower extremity pain and swelling. COMPARISON: Comparison is made with a prior study from March 17, 2018. TECHNIQUE: Multiple real-time, color flow and Doppler tracings of both lower extremities were obtained. FINDINGS: The exam is limited due to the patient's body habitus and swelling. The patient did not tolerate compression in the medial thigh region. The common femoral, femoral, profunda femoral and popliteal veins demonstrate normal compressibility, augmentation with compression and phasic response with respiration. The posterior tibial and peroneal veins demonstrate normal compressibility and augmentation with compression. IMPRESSION: LIMITED STUDY, NO GROSS EVIDENCE FOR DEEP VENOUS THROMBOSIS.
[2018-03-26] MEDS ORDERED: Morphine PF AMP (0.5MG/ML)* 5 MG/10 ML AMP ONE (18:05)
[2018-03-26] MEDS ORDERED: ceFOXitin 2 GM IVPREMIX* 2 GM/50 ML BAG ONE (18:52)
[2018-03-26] MEDS ORDERED: Phenylephrine IV* 40 MCG/ML 10 ML SYRINGE ONE (19:08)
[2018-03-26] MEDS ORDERED: Glycerin ADULT SUPP PR PRN (19:58)
[2018-03-26] MEDS ORDERED: Dibucaine 1% 28.35 GM TUBE PR PRN (19:58)
[2018-03-26] MEDS ORDERED: Witch Hazel PAD* JAR TOPICAL PRN (19:58)
[2018-03-26] MEDS ORDERED: Acetaminophen TAB* 325 MG PO PRN (19:58)
[2018-03-26] MEDS ORDERED: Scopolamine 1.5 mg* PATCH TRANSDERM PRN ×2 (20:03→20:04)
[2018-03-26] MEDS ORDERED: Ondansetron INJ* 2 MG/ML VIAL IV PRN ×2 (20:03→20:04)
[2018-03-26] MEDS ORDERED: fentaNYL* 50 MCG/ML 2 ML VIAL (100 MCG VIAL) IV PRN (20:03)
[2018-03-26] MEDS ORDERED: Acetaminophen IV 1GM/100ML * 1,000 MG/100 ML VIAL IVPB ONE (20:03)
[2018-03-26] MEDS ORDERED: Ketorolac INJ* 30 MG/ML 1 ML VIAL IV PRN (20:03)
[2018-03-26] MEDS ORDERED: oxyCODONE TAB* 5 MG TAB PO PRN ×2 (20:03→20:04)
[2018-03-26] MEDS ORDERED: Naloxone* 0.4 MG/ML 1 ML VIAL IV PRN ×2 (20:03→20:04)
[2018-03-26] MEDS ORDERED: Nalbuphine* 10 MG/ML 1 ML VIAL IV PRN (20:04)
[2018-03-26] MEDS ORDERED: Oxytocin in LR* 20 UNITS/1,000 ML BAG IVPB ONE (20:54)
[2018-03-26] MEDS ORDERED: Misoprostol TAB* 200 MCG ONE (23:27)
[2018-03-27 01:48] LABS: ABS Basophils 0 10^3/ul (0-0.2); ABS Eosinophils 0 10^3/ul (0-0.6); ABS Lymphocytes 0.8 10^3/ul (1.0-4.8); ABS Monocytes 0.4 10^3/ul (0-0.8); ABS Neutrophils 16.1 10^3/ul (1.5-7.7); ABS Nucleated RBC 0 10^3/ul; Eosinophil % 0 % (0-6); Hematocrit 30 % (35-47); Hemoglobin 10.1 g/dl (12.0-16.0); Lymphocyte % 4.6 % (25-47); Mean Corpuscular HGB Conc 33 g/dl (31-36); Mean Corpuscular Hemoglobin 27 pg (27-31); Mean Corpuscular Volume 81 fL (80-97); Mean Platelet Volume 8.1 um3 (7.4-10.4); Nucleated Red Blood Cells % 0; Platelet Count 179 10^3/ul (150-450); Red Blood Count 3.74 10^6/ul (4.00-5.40); Red Cell Distribution Width 14 % (10.5-15); White Blood Count 17.3 10^3/ul (3.5-10.8)
[2018-03-27] MEDS: Ketorolac INJ* 30 MG/ML 1 ML VIAL IV SCH ×3 (02:58→08:56)
[2018-03-27] MEDS ORDERED: Acetaminophen TAB* 325 MG PO SCH (04:00)
[2018-03-27 06:44] LABS: ABS Basophils 0 10^3/ul (0-0.2); ABS Eosinophils 0 10^3/ul (0-0.6); ABS Lymphocytes 1.4 10^3/ul (1.0-4.8); ABS Monocytes 0.6 10^3/ul (0-0.8); ABS Neutrophils 12.6 10^3/ul (1.5-7.7); ABS Nucleated RBC 0 10^3/ul; Eosinophil % 0 % (0-6); Hematocrit 26 % (35-47); Hemoglobin 8.9 g/dl (12.0-16.0); Lymphocyte % 9.7 % (25-47); Mean Corpuscular HGB Conc 34 g/dl (31-36); Mean Corpuscular Hemoglobin 27 pg (27-31); Mean Corpuscular Volume 81 fL (80-97); Mean Platelet Volume 8.1 um3 (7.4-10.4); Nucleated Red Blood Cells % 0.1; Platelet Count 165 10^3/ul (150-450); Red Blood Count 3.23 10^6/ul (4.00-5.40); Red Cell Distribution Width 14 % (10.5-15); White Blood Count 14.6 10^3/ul (3.5-10.8)
[2018-03-27] MEDS: Docusate CAP* 100 MG PO SCH ×4 (07:32→20:55)
[2018-03-27] MEDS: Simethicone TAB* 80 MG TAB.CHEW PO SCH ×5 (07:32→20:55)
[2018-03-27] MEDS: Ferrous Gluconate TAB* 324 MG TAB PO SCH ×2 (08:57→20:55)
[2018-03-27] MEDS ORDERED: Zolpidem TAB* 5 MG PO PRN (10:30)
[2018-03-27] MEDS ORDERED: NS 0.9% 500 ML* 500 ML IV ONE (12:18)
[2018-03-27 12:56] LABS: EGFR Non-African American 55.1 (>60)
[2018-03-27] MEDS: Enoxaparin(*) 40 MG/0.4 ML SYR SUBCUT SCH (14:26)
[2018-03-27] MEDS: oxyCODONE/Acetamin 5/325 MG* TAB PO PRN ×4 (14:26→23:22)
--- NOTE | 2018-03-27 14:45 | OP ---
OPERATIVE REPORT: DATE OF OPERATION: 03/26/18 DATE OF : [birth year] SURGEON: Raf Russell MD INTERNATIONAL RELATIONS TEACHER: Mara Kitchen, cisco certified internetwork expert. ANESTHESIA: Spinal. PRE-OP DIAGNOSES: 1. Intrauterine at 37 weeks. 2. Gestational diabetes. 3. Preeclampsia. 4. macrosomia. POST-OP DIAGNOSES: 1. Intrauterine at 37 weeks. 2. Gestational diabetes. 3. Preeclampsia. 4. macrosomia. OPERATIVE PROCEDURE: Primary low transverse section. ESTIMATED BLOOD LOSS: 1200 cc. FLUIDS: She received 1600 cc of IV fluid. URINE OUTPUT: Clear. FINDINGS: Delivery of a viable female weighing 8 pounds 12 ounces with Apgars of 8 and 9. Th e placenta was grossly intact with a 3-vessel chord noted. The uterus, adnexa, bowel, and bladder wer e within normal limits. Complication was hemorrhage. DESCRIPTION OF PROCEDURE: The patient was taken to the operating room, where she was identified. Sh e was placed on the operating table, where a spinal anesthetic was obtained without difficulty. She was then placed in the supine position with a leftward tilt, prepped and draped in a normal sterile f ashion. A Pfannenstiel skin incision was made with a knife, extended down to the fascia. The fascia was then nicked in the midline, extended laterally with a curved Ortiz scissors. The fascia was gras ped superiorly and inferiorly with Shakira clamps, dissected off sharply from the rectus muscle. The rectus muscle was in the midline bluntly. The peritoneum was identified, grasped with leviu ps, entered sharply with Metzenbaum scissors and extended superiorly and inferiorly sharply. A bladd er blade was then inserted into patient's abdomen. A bladder flap was created using Metzenbaum sciss ors over which the bladder blade was then reinserted. A low transverse uterine incision was made wit h a knife and the uterine incision was then extended using bandage scissors. The amniotic fluid was ruptured. The fluid was noted be clear. The infant's head was then grasped and delivered atraumatic ally. The nose and mouth were suctioned. The rest of the 's body was then delivered. The cord was clamped and cut. The was handed off to awaiting cotton weigher. Cord bloods were obtained and the placenta was removed manually. The uterus was then exteriorized, cleared of all clot and saran ris using moist laparotomy sponges. The uterine incision was then closed using 0 Polysorb suture in a running locked fashion with a second imbricating layer of 0 Polysorb suture with good hemostasis no urszula. At this point, The uterus was returned to the patient's abdomen. The gutters were then cleared of clot and debris using moist laparotomy sponges. All the sponges were removed from the patient's abdomen. The peritoneum was then closed using 3-0 Polysorb suture in a running fashion. The fascia w as closed using 0 Polysorb suture in a running fashion and the skin was closed with a 4-0 Monocryl rowe bcuticular stitch. Sponge, lap, needle counts were correct x2. The patient was then taken to recove ry room area in stable condition. [id number]/[facility] #: [id number]
[2018-03-27] MEDS ORDERED: Ibuprofen TAB* 600 MG PO PRN (21:00)
[2018-03-28] MEDS: Ferrous Gluconate TAB* 324 MG TAB PO SCH ×2 (07:49→20:32)
[2018-03-28] MEDS: oxyCODONE/Acetamin 5/325 MG* TAB PO PRN ×4 (07:49→22:16)
[2018-03-28] MEDS: Docusate CAP* 100 MG PO SCH ×3 (07:49→20:32)
[2018-03-28] MEDS: Simethicone TAB* 80 MG TAB.CHEW PO SCH ×4 (07:49→20:31)
[2018-03-28] MEDS ORDERED: Magnesium Hydroxide LIQ* 30 ML UDC ONE (08:30)
[2018-03-28] MEDS: Magnesium Hydroxide LIQ* 30 ML UDC PO PRN ×2 (08:46→13:28)
[2018-03-28] MEDS: Enoxaparin(*) 40 MG/0.4 ML SYR SUBCUT SCH ×2 (13:42→13:53)
[2018-03-29] MEDS: oxyCODONE/Acetamin 5/325 MG* TAB PO PRN ×3 (03:10→12:36)
[2018-03-29] MEDS: Ferrous Gluconate TAB* 324 MG TAB PO SCH (08:02)
[2018-03-29] MEDS: Simethicone TAB* 80 MG TAB.CHEW PO SCH ×2 (08:02→12:36)
[2018-03-29] MEDS: Docusate CAP* 100 MG PO SCH (08:02)
[2018-03-29 08:34] VITALS: BP 126/69
--- NOTE | 2018-03-29 08:56 | PTEDU ---
Patient Name: CHRIST DAVID CHRIST DAVID selected video: Never Ever Shake a Baby to view on 03/29/2018 at 8:55:55 AM [id number]
[2018-03-29] MEDS ORDERED: Aspirin 81 mg CHEW TAB* 81 MG TAB.CHEW PO ONE (09:19)
[2018-03-29] MEDS ORDERED: Scopolamine PATCH Remove* 1 NOTE MISC PATCH OFF ONE (20:03)
[2018-03-29] MEDS ORDERED: Scopolamine PATCH Remove* 1 NOTE MISC PATCH OFF PRN (20:05)
[2018-03-30] MEDS ORDERED: Aspirin 81 mg CHEW TAB* 81 MG TAB.CHEW PO SCH (09:00)
== END 2018-03-29 14:00 | disposition home or self-care (01) | DRG 540 ==
LOC: MCHOBOUT 16:27 → MCHOB 16:31
PROVIDERS: ADMIT Obstetrics & Gynecology; ATTEND Obstetrics & Gynecology
PROC: 10D00Z1 Extraction of Products of Conception, Low, Open Approach (ICD-10-PCS; principal; 2018-03-26 18:14)
DX: O14.94 Unspecified pre-eclampsia, complicating childbirth (principal); O24.429 Gestational diabetes mellitus in childbirth, unspecified control; O36.63X0 Maternal care for excessive fetal growth, third trimester, not applicable or unspecified; O99.824 Streptococcus B carrier state complicating childbirth; O87.0 Superficial thrombophlebitis in the puerperium; O90.81 Anemia of the puerperium; D64.9 Anemia, unspecified; Z3A.37 37 weeks gestation of pregnancy; Z37.0 Single live birth
CPT/HCPCS: 36415; 80048; 80053; 84550; 85025; 85049; 85362; 85384; 85610; 85730; 86850; 86900; 86901; 93970; A9270-GY; J0694; J1100; J1650; J1885; J2405; J2590

== ENCOUNTER 2019-03-10 22:39 | Emergency (ER) | payer OTHER ==
[2019-03-10 23:12] LABS: ABS Eosinophils 0.1 10^3/ul (0-0.6); ABS Lymphocytes 2.5 10^3/ul (1.0-4.8); ABS Monocytes 0.4 10^3/ul (0-0.8); ABS Neutrophils 3.3 10^3/ul (1.5-7.7); Eosinophil % 1.2 %; Hematocrit 38 % (35-47); Hemoglobin 12.4 g/dL (12.0-16.0); Lymphocyte % 39.2 %; Mean Corpuscular HGB Conc 33 g/dL (31-36); Mean Corpuscular Hemoglobin 27 pg (27-31); Mean Corpuscular Volume 82 fL (80-97); Mean Platelet Volume 7.7 fL (7.4-10.4); Nucleated Red Blood Cells % 0.1; Platelet Count 229 10^3/uL (150-450); Red Blood Count 4.64 10^6 /uL (3.70-4.87); Red Cell Distribution Width 14 % (10.5-15); White Blood Count 6.3 10^3/uL (3.5-10.8)
[2019-03-10 23:22] LABS: Urine Appearance Cloudy; Urine Bilirubin Negative (Negative); Urine Blood Negative (Negative); Urine Color Yellow; Urine Glucose Negative (Negative); Urine Ketones Trace (Negative); Urine Nitrite Negative (Negative); Urine Protein Negative (Negative); Urine Specific Gravity 1.035 (1.010-1.030); Urine Urobilinogen Negative (Negative)
--- NOTE | 2019-03-10 23:24 | ED ---
Abdominal Pain/Female - HPI Summary HPI Summary: The patient is a 23 y/o F presenting to [facility] accompanied by friend with a chief complaint of gradual onset intermittent LLQ and right flank radiating to the low back starting a week ago. The sharp pain is currently rated 6/10 in severity. There are no aggravating or alleviating factors. She denies nausea, vomiting, diarrhea, constipation, hematuria, vaginal discharge, and fever. No hx of kidney stones. Appendectomy in 2013. - History of Current Complaint Chief Complaint: EDAbdPain Stated Complaint: ABD PAIN PER PT Time Seen by Provider: 03/10/19 22:59 Hx Obtained From: Patient Onset/Duration: Gradual Onset, Lasting Days - one week, Still Present Timing: Days - intermittent Severity Initially: Mild Severity Currently: Moderate Pain Intensity: 6 Pain Scale Used: 0-10 Numeric Location: Discrete At: LLQ, Flank - right Radiates: Yes Radiates to: Back - low Character: Sharp Aggravating Factor(s): Nothing Alleviating Factor(s): Nothing Associated Signs and Symptoms: Positive: Other: - NEGATIVE: hematuria. Negative : Fever, Constipation, Vaginal Discharge, Nausea, Vomiting, Diarrhea Allergies/Adverse Reactions: Allergies Allergy/AdvReac Type Severity Reaction Status Date / Time No Known Allergies Allergy Verified 03/10/19 22:48 PMH/Surg Hx/FS Hx/Imm Hx Endocrine/Hematology History: Denies: Hx Diabetes, Hx Thyroid Disease Cardiovascular History: Denies: Hx Hypertension Respiratory History: Denies: Hx Asthma History: Reports: Hx Kidney Infection - hx UTI Denies: Other Problems/Disorders Sensory History: Denies: Hx Deafness Opthamlomology History: Denies: Hx Legally Blind EENT History: Denies: Hx Deafness Psychiatric History: Denies: Hx Anxiety, Hx Depression, Other Psychiatric Issues/Disorders - Surgical History Surgery Procedure, Year, and Place: appendectomy in 2014 Infectious Disease History: No Infectious Disease History: Denies: Traveled Outside the [place] in Last 30 Days - Family History Known Family History: Negative: Cardiac Disease, Hypertension, Diabetes - Social History Alcohol Use: None Hx Substance Use: No Substance Use Type: Reports: None Hx Tobacco Use: No Smoking Status (MU): Never Smoked Tobacco Do You Chew or Dip Tobacco: No Have You Chewed or Dipped Tobacco in the LAST YEAR: No Have You Smoked in the Last Year: No Review of Systems Negative: Fever Positive: Abdominal Pain - LLQ, right flank, Other - NEGATIVE: constipation. Negative: Vomiting, Diarrhea, Nausea Negative: discharge, hematuria Positive: Other - low back pain radiating from abd All Other Systems Reviewed And Are Negative: Yes Physical Exam - Summary Physical Exam Summary: Appearance: Well appearing, no pain distress Skin: warm, dry, reflects adequate perfusion Head/face: normal Eyes: EOMI, SHARON ENT: normal Neck: supple, non-tender Respiratory: CTA, breath sounds present Cardiovascular: RRR, pulses symmetrical Abdomen: tenderness in the left lower quadrant, soft Musculoskeletal: normal, strength/ROM intact Neuro: normal, sensory motor intact, A&Ox3 Triage Information Reviewed: Yes Vital Signs On Initial Exam: Initial Vitals Temp Pulse Resp BP Pulse Ox 97.1 F 92 16 145/83 100 03/10/19 22:43 03/10/19 22:43 03/10/19 22:43 03/10/19 22:43 03/10/19 22:43 Vital Signs Reviewed: Yes Diagnostics - Vital Signs Vital Signs Temp Pulse Resp BP Pulse Ox 03/10/19 22:43 97.1 F 92 16 145/83 100 - Laboratory Lab Results: Lab Results 03/10/19 Range/Units 23:01 WBC 6.3 (3.5-10.8) 10^3/uL RBC 4.64 (3.70-4.87) 10^6 /uL Hgb 12.4 (12.0-16.0) g/dL Hct 38 (35-47) % MCV 82 (80-97) fL MCH 27 (27-31) pg MCHC 33 (31-36) g/dL RDW 14 (10.5-15) % Plt Count 229 (150-450) 10^3/uL MPV 7.7 (7.4-10.4) fL Neut % (Auto) 52.8 % Lymph % (Auto) 39.2 % [place] % (Auto) 6.2 % Eos % (Auto) 1.2 % Baso % (Auto) 0.6 % Absolute Neuts (auto) 3.3 (1.5-7.7) 10^3/ul Absolute Lymphs (auto) 2.5 (1.0-4.8) 10^3/ul Absolute Monos (auto) 0.4 (0-0.8) 10^3/ul Absolute Eos (auto) 0.1 (0-0.6) 10^3/ul Absolute Basos (auto) 0.0 (0-0.2) 10^3/ul Absolute Nucleated RBC 0.0 10^3/ul Nucleated RBC % 0.1 Result Diagrams: 03/10/19 23:01 03/10/19 23:01 Lab Statement: Any lab studies that have been ordered have been reviewed, and results considered in the medical decision making process. - CT Abd/Pel CT CT Interpretation Completed By: Radiologist Summary of CT Findings: No CT findings to correlate with patient's symptomatology. Specifically no obstructing renal or ureteral calculi. ED physician has reviewed this radiology report. Re-Evaluation - Re-Evaluation First Eval Re-Evaluation Time: 01:30 Comment: I spoke with the patient concerning results and discharge home. Abdominal Pain Fem Course/Dx - Course Course Of Treatment: The patient is a 23 y/o F presenting to [facility] accompanied by friend with a chief complaint of gradual onset intermittent LLQ and right flank radiating to the low back starting a week ago without nausea, vomiting, diarrhea, constipation, hematuria, vaginal discharge, or fever. Upon physical exam, the patient exhibits tenderness in the left lower quadrant. In the ED course, the patient was administered Toradol for pain. Blood work and UA obtained. CT Abd/Pel impression reveals no significant findings. She is diagnosed with abdominal pain. She will be discharged home with prescription for Ibuprofen and follow up with PCP in 2-3 days. She agrees with this plan and understands the need for return to the ED for any new or worsening symptoms. - Diagnoses Differential Diagnosis: Positive: Constipation, Diverticulitis, Renal Colic, Urinary Tract Infection Provider Diagnoses: Abdominal pain Discharge - Sign-Out/Discharge Documenting (check all that apply): Patient Departure - Patient will be discharged home. Patient Received Moderate/Deep Sedation with Procedure: No - Discharge Plan Condition: Stable Disposition: HOME Prescriptions: Ibuprofen TAB* [Motrin TAB* 600 MG] 600 mg PO Q8H PRN #15 tab MDD 3 PRN Reason: Pain Patient Education Materials: Abdominal Pain (ED) Referrals: Raf Russell MD [Primary Care Provider] - 3 Days Additional Instructions: Please take medication as prescribed. Follow up with your primary care provider in 2-3 days. RETURN TO THE EMERGENCY DEPARTMENT FOR ANY NEW OR WORSENING SYMPTOMS. - Billing Disposition and Condition Condition: STABLE Disposition: Home - Attestation Statements Document Initiated by Nikolay: Yes Documenting Scribe: Kayleen Carlton Provider For Whom Nikolay is Documenting (Include Credential): Dr. Enrique Evans MD Scribe Attestation: Kayleen Thibodeaux, scribed for Dr. Enrique Evans MD on 03/11/19 at 0151. Scribe Documentation Reviewed: Yes Provider Attestation: The documentation as recorded by the Kayleen redd accurately reflects the service I personally performed and the decisions made by me, Dr. Enrique Evans MD Status of Scribe Document: Viewed
[2019-03-10 23:32] LABS: ALT 14 U/L (7-52); AST 11 U/L (13-39); Albumin 4.6 g/dL (3.2-5.2); Albumin/Globulin Ratio 1.6 (1-3); Alkaline Phosphatase 67 U/L (34-104); Anion Gap 5 mmol/L (2-11); BUN/Creatinine Ratio 19.7 (8-20); Blood Urea Nitrogen 15 mg/dL (6-24); CO2 Carbon Dioxide 29 mmol/L (22-32); Calcium 9.6 mg/dL (8.6-10.3); Chloride 105 mmol/L (101-111); EGFR African American 116.2 (>60); EGFR Non-African American 96.1 (>60); Globulin 2.8 g/dL (2-4); Glucose 127 mg/dL (70-100); Potassium 3.9 mmol/L (3.5-5.0); Sodium 139 mmol/L (135-145); Total Protein 7.4 g/dL (6.4-8.9)
[2019-03-10 23:38] LABS: HCG Pregnancy < 0.60 mIU/mL
[2019-03-11] MEDS ORDERED: Ketorolac INJ* 60 MG/2 ML VIAL IM ONE (00:01)
[2019-03-11 01:41] VITALS: BP 117/61
== END 2019-03-11 01:40 | disposition home or self-care (01) ==
LOC: ED 22:39
DX: R10.84 Generalized abdominal pain (principal); M54.5 Low back pain
CPT/HCPCS: 36415; 74176; 80053; 81003; 83605; 83690; 84702; 85025; 86703; 96372; 99283; J1885

== ENCOUNTER 2019-03-11 23:05 | Emergency (ER) | payer OTHER ==
[2019-03-12 00:01] LABS: ABS Eosinophils 0.1 10^3/ul (0-0.6); ABS Lymphocytes 2.6 10^3/ul (1.0-4.8); ABS Monocytes 0.4 10^3/ul (0-0.8); ABS Neutrophils 2.4 10^3/ul (1.5-7.7); Eosinophil % 2.4 %; Hematocrit 36 % (35-47); Hemoglobin 11.8 g/dL (12.0-16.0); Mean Corpuscular HGB Conc 33 g/dL (31-36); Mean Corpuscular Hemoglobin 27 pg (27-31); Mean Corpuscular Volume 82 fL (80-97); Mean Platelet Volume 7.4 fL (7.4-10.4); Platelet Count 207 10^3/uL (150-450); Red Blood Count 4.38 10^6 /uL (3.70-4.87); Red Cell Distribution Width 14 % (10.5-15); White Blood Count 5.6 10^3/uL (3.5-10.8)
[2019-03-12 00:21] LABS: ALT 12 U/L (7-52); AST 11 U/L (13-39); Albumin 4.3 g/dL (3.2-5.2); Albumin/Globulin Ratio 1.6 (1-3); Alkaline Phosphatase 69 U/L (34-104); Anion Gap 3 mmol/L (2-11); BUN/Creatinine Ratio 18.1 (8-20); Blood Urea Nitrogen 13 mg/dL (6-24); CO2 Carbon Dioxide 29 mmol/L (22-32); Calcium 9.5 mg/dL (8.6-10.3); Chloride 106 mmol/L (101-111); EGFR African American 123.7 (>60); EGFR Non-African American 102.3 (>60); Globulin 2.7 g/dL (2-4); Glucose 103 mg/dL (70-100); Potassium 4.4 mmol/L (3.5-5.0); Sodium 138 mmol/L (135-145)
[2019-03-12 00:26] LABS: HCG Pregnancy < 0.60 mIU/mL
[2019-03-12 00:33] LABS: Urine Appearance Clear; Urine Bacteria Absent (Absent); Urine Bilirubin Negative (Negative); Urine Blood 3+ (Negative); Urine Color Yellow; Urine Glucose Negative (Negative); Urine Ketones Negative (Negative); Urine Nitrite Negative (Negative); Urine Protein Negative (Negative); Urine Red Blood Cell 3+(>10/hpf) (Absent); Urine Specific Gravity 1.013 (1.010-1.030); Urine Urobilinogen Negative (Negative); Urine White Blood Cell Trace(0-5/hpf) (Absent)
[2019-03-12] MEDS ORDERED: traMADol TAB* 50 MG PO ONE (01:42)
[2019-03-12 02:23] VITALS: BP 119/70
--- NOTE | 2019-03-12 02:35 | ED ---
Abdominal Pain/Female - HPI Summary HPI Summary: The patient is a 23 y/o F [place] [facility] [place] [place] boyfriend with a chief complaint of right flank pain and vaginal bleeding starting tonight. She reports that she was playing with her child who kicked her in the abd, and then her pain worsened with the addition of vaginal bleeding. Currently her sharp pain is rated 8/10 in severity. Movement aggravates the pain. She took hydromorphone [employer] to mild relief. She had presented to the ED yesterday for similar symptoms; she is concerned for , but her beta hcG was negative yesterday. - History of Current Complaint Chief Complaint: EDAbdPain Stated Complaint: LEFT SIDE/BACK PAIN, POSS PREG PER PT Time Seen by Provider: 03/12/19 01:34 Hx Obtained From: Patient Onset/Duration: Sudden Onset, Lasting Hours, Still Present Timing: Hours Severity Initially: Mild Severity Currently: Moderate Pain Intensity: 8 Pain Scale Used: 0-10 Numeric Location: Flank - right Radiates: No Character: Sharp Aggravating Factor(s): Movement Alleviating Factor(s): Nothing Associated Signs and Symptoms: Positive: Vaginal Bleeding Allergies/Adverse Reactions: Allergies Allergy/AdvReac Type Severity Reaction Status Date / Time No Known Allergies Allergy Verified 03/11/19 23:11 PMH/Surg Hx/FS Hx/Imm Hx Endocrine/Hematology History: Denies: Hx Diabetes, Hx Thyroid Disease Cardiovascular History: Denies: Hx Hypertension Respiratory History: Denies: Hx Asthma History: Reports: Hx Kidney Infection - hx UTI Denies: Other Problems/Disorders Sensory History: Denies: Hx Legally Blind, Hx Deafness Opthamlomology History: Denies: Hx Legally Blind Psychiatric History: Denies: Hx Anxiety, Hx Depression, Other Psychiatric Issues/Disorders - Surgical History Surgery Procedure, Year, and Place: appendectomy in 2014 Infectious Disease History: No Infectious Disease History: Denies: Traveled Outside the [place] in Last 30 Days - Family History Known Family History: Negative: Cardiac Disease, Hypertension, Diabetes - Social History Alcohol Use: None Hx Substance Use: No Substance Use Type: Reports: None Hx Tobacco Use: No Smoking Status (MU): Never Smoked Tobacco Do You Chew or Dip Tobacco: No Have You Chewed or Dipped Tobacco in the LAST YEAR: No Have You Smoked in the Last Year: No Review of Systems Positive: Abdominal Pain - right flank Positive: other - vaginal bleeding All Other Systems Reviewed And Are Negative: Yes Physical Exam - Summary Physical Exam Summary: Appearance: Well appearing, no pain distress Skin: warm, dry, reflects adequate perfusion Head/face: normal Eyes: EOMI, SHARON ENT: normal Neck: supple, non-tender Respiratory: CTA, breath sounds present Cardiovascular: RRR, pulses symmetrical Abdomen: non-tender, soft Musculoskeletal: normal, strength/ROM intact Neuro: normal, sensory motor intact, A&Ox3 Triage Information Reviewed: Yes Vital Signs On Initial Exam: Initial Vitals Temp Pulse Resp BP Pulse Ox 97.9 F 75 16 135/65 98 03/11/19 23:08 03/11/19 23:08 03/11/19 23:08 03/11/19 23:08 03/11/19 23:08 Vital Signs Reviewed: Yes Diagnostics - Vital Signs Vital Signs Temp Pulse Resp BP Pulse Ox 03/12/19 02:22 97.2 F 60 18 119/70 98 03/11/19 23:08 97.9 F 75 16 135/65 98 - Laboratory Lab Results: Lab Results 03/11/19 03/11/19 03/12/19 Range/Units 23:53 23:53 00:21 WBC 5.6 (3.5-10.8) 10^3/uL RBC 4.38 (3.70-4.87) 10^6 /uL Hgb 11.8 L (12.0-16.0) g/dL Hct 36 (35-47) % MCV 82 (80-97) fL MCH 27 (27-31) pg MCHC 33 (31-36) g/dL RDW 14 (10.5-15) % Plt Count 207 (150-450) 10^3/uL MPV 7.4 (7.4-10.4) fL Neut % (Auto) 43.4 % Lymph % (Auto) 46.0 % [place] % (Auto) 7.5 % Eos % (Auto) 2.4 % Baso % (Auto) 0.7 % Absolute Neuts (auto) 2.4 (1.5-7.7) 10^3/ul Absolute Lymphs (auto) 2.6 (1.0-4.8) 10^3/ul Absolute Monos (auto) 0.4 (0-0.8) 10^3/ul Absolute Eos (auto) 0.1 (0-0.6) 10^3/ul Absolute Basos (auto) 0.0 (0-0.2) 10^3/ul Absolute Nucleated RBC 0.0 10^3/ul Nucleated RBC % 0.0 Sodium 138 (135-145) mmol/L Potassium 4.4 (3.5-5.0) mmol/L Chloride 106 (101-111) mmol/L Carbon Dioxide 29 (22-32) mmol/L Anion Gap 3 (2-11) mmol/L BUN 13 (6-24) mg/dL Creatinine 0.72 (0.51-0.95) mg/dL Est GFR ( Amer) 123.7 (>60) Est GFR (Non-Af Amer) 102.3 (>60) BUN/Creatinine Ratio 18.1 (8-20) Glucose 103 H (70-100) mg/dL Calcium 9.5 (8.6-10.3) mg/dL Total Bilirubin 0.20 (0.2-1.0) mg/dL AST 11 L (13-39) U/L ALT 12 (7-52) U/L Alkaline Phosphatase 69 (34-104) U/L Total Protein 7.0 (6.4-8.9) g/dL Albumin 4.3 (3.2-5.2) g/dL Globulin 2.7 (2-4) g/dL Albumin/Globulin Ratio 1.6 (1-3) Lipase < 10 L (11.0-82.0) U/L Beta HCG, Quant < 0.60 mIU/mL Urine Color Yellow Urine Appearance Clear Urine pH 5.0 (5-9) Ur Specific [place] 1.013 (1.010-1.030) Urine Protein Negative (Negative) Urine Ketones Negative (Negative) Urine Blood 3+ A (Negative) Urine Nitrate Negative (Negative) Urine Bilirubin Negative (Negative) Urine Urobilinogen Negative (Negative) Ur Leukocyte Esterase Negative (Negative) Urine WBC (Auto) Trace(0-5/hpf) (Absent) Urine RBC (Auto) 3+(>10/hpf) A (Absent) Urine Bacteria Absent (Absent) Urine Glucose Negative (Negative) Result Diagrams: 03/11/19 23:53 03/11/19 23:53 Lab Statement: Any lab studies that have been ordered have been reviewed, and results considered in the medical decision making process. Abdominal Pain Fem Course/Dx - Course Course Of Treatment: The patient is a 23 y/o F presenting to [facility] accompanied by boyfriend with a chief complaint of right flank pain and vaginal bleeding starting tonight. Upon physical exam, the patient exhibits no acute abnormalities. In the ED course, the patient was administered Tramadol. Blood work and UA obtained. Since the patient had a CT Abd/Pel yesterday without any findings, I do not think that it would be appropriate to repeat the imaging today, and the pain seems to be muscular. She is diagnosed with abdominal pain. She will be discharged home with prescription for Voltaren and follow up with PCP in 2-3 days. She agrees with this plan and understands the need for return to the ED for any new or worsening symptoms. pt was here for the same problem yesterday - Diagnoses Provider Diagnoses: Abdominal pain Discharge - Sign-Out/Discharge Documenting (check all that apply): Patient Departure - Patient will be discharged home. Patient Received Moderate/Deep Sedation with Procedure: No - Discharge Plan Condition: Stable Disposition: HOME Prescriptions: Diclofenac Sodium EC TAB* [Voltaren EC TAB*] 50 mg PO TID PRN #15 tab.ec MDD 3 PRN Reason: Pain Patient Education Materials: Abdominal Pain (ED) Referrals: Raf Russell MD [Primary Care Provider] - 3 Days Additional Instructions: Please take medication as prescribed. Follow up with your primary care provider. RETURN TO THE EMERGENCY DEPARTMENT FOR ANY NEW OR WORSENING SYMPTOMS. - Billing Disposition and Condition Condition: STABLE Disposition: Home - Attestation Statements Document Initiated by Nikolay: Yes Documenting Scribe: Kayleen Carlton Provider For Whom Nikolay is Documenting (Include Credential): MD Ibeth Varneribte Attestation: Kayleen Thibodeaux scribed for Dr. Enrique Evans MD on 03/12/19 at 0252. Scribe Documentation Reviewed: Yes Provider Attestation: The documentation as recorded by the Kayleen redd accurately reflects the service I personally performed and the decisions made by me, Dr. Enrique Evans MD Status of Scribe Document: Viewed
== END 2019-03-12 02:29 | disposition home or self-care (01) ==
LOC: ED 23:05
DX: R10.9 Unspecified abdominal pain (principal); N93.9 Abnormal uterine and vaginal bleeding, unspecified; Z32.02 Encounter for pregnancy test, result negative
CPT/HCPCS: 36415; 80053; 81003; 81015; 83690; 84702; 85025; 87086; 99282

== ENCOUNTER 2019-07-01 22:02 | Emergency (ER) | payer MEDICAID, OTHER ==
--- NOTE | 2019-07-01 23:33 | ED ---
HPI Febrile Illness - HPI Summary HPI Summary: This pt states that she has had flu like symptoms since 06/28/19 and myalgia that is currently rated a 10/10 in severity. She states that she has been having a fever since yesterday and was rated 100 F. She states that she also has a headache, sore throat, nasal congestion, SOB, and a sore throat. She denies any abdominal pain, V/V, chills, diaphoresis, and diarrhea. She states no aggravating or alleviating factors. She stated that she has been having severe headaches for 3 months with no prior headache disorders. She states no PMHx that is pertinent. - History of Current Complaint Chief Complaint: EDFever Time Seen by Provider: 07/01/19 23:20 Hx Obtained From: Patient Onset/Duration: Started Days Ago - 3, Still Present, Worse Since - onset Timing: Constant Temperature: 37.7 C Initial Severity: Moderate Current Severity: Severe Pain Intensity: 10 Pain Scale Used: 0-10 Numeric Aggravating Factors: Nothing Alleviating Factors: Nothing Associated Signs and Symptoms: Negative - abdominal pain, N/V, chills, diaphoresis, and diarrhea., Headache, Myalgia, SOB, Other: - POSITIVE: sore throat - Allergy/Home Medications Allergies/Adverse Reactions: Allergies Allergy/AdvReac Type Severity Reaction Status Date / Time No Known Allergies Allergy Verified 07/01/19 22:07 PMH/Surg Hx/FS Hx/Imm Hx Previously Healthy: Yes Endocrine/Hematology History: Denies: Hx Diabetes, Hx Thyroid Disease Cardiovascular History: Denies: Hx Hypertension Respiratory History: Denies: Hx Asthma History: Reports: Hx Kidney Infection - hx UTI Denies: Other Problems/Disorders Sensory History: Denies: Hx Legally Blind, Hx Deafness Opthamlomology History: Denies: Hx Legally Blind Psychiatric History: Denies: Hx Anxiety, Hx Depression, Other Psychiatric Issues/Disorders - Surgical History Surgery Procedure, Year, and Place: appendectomy in 2014 Infectious Disease History: No Infectious Disease History: Denies: Traveled Outside the [place] in Last 30 Days - Family History Known Family History: Negative: Cardiac Disease, Hypertension, Diabetes - Social History Alcohol Use: None Hx Substance Use: No Substance Use Type: Reports: None Hx Tobacco Use: No Smoking Status (MU): Never Smoked Tobacco Have You Smoked in the Last Year: No Review of Systems Positive: Fever - 100 F. Negative: Chills, Skin Diaphoresis Positive: Sore Throat Negative: Chest Pain Positive: Shortness Of Breath Negative: Abdominal Pain, Vomiting, Diarrhea, Nausea Positive: Myalgia Positive: Headache All Other Systems Reviewed And Are Negative: Yes Physical Exam - Summary Physical Exam Summary: Appearance: Well-appearing, Well-nourished, lying in bed comfortably Skin: Warm, dry, no obvious rash Eyes: sclera anicteric, no conjunctival pallor ENT: mucous membranes moist, pharynx appears normal Neck: Supple, nontender Respiratory: Clear to auscultation, no signs of respiratory distress Cardiovascular: Normal S1, S2. No murmurs. Normal distal pulses in tibial and radial bilaterally. Abdomen: Soft, nontender, normal active bowel sounds present Musculoskeletal: Normal, Strength/ROM Intact Neurological: A&Ox3, awake and alert, mentation is normal, speech is fluent and appropriate Psychiatric: affect is normal, does not appear anxious or depressed Triage Information Reviewed: Yes Vital Signs On Initial Exam: Initial Vitals Temp Pulse Resp BP Pulse Ox 99.9 F 90 16 128/77 98 07/01/19 22:04 07/01/19 22:04 07/01/19 22:04 07/01/19 22:04 07/01/19 22:04 Vital Signs Reviewed: Yes Diagnostics - Vital Signs Vital Signs Temp Pulse Resp BP Pulse Ox 07/01/19 22:04 99.9 F 90 16 128/77 98 - Laboratory Lab Statement: Any lab studies that have been ordered have been reviewed, and results considered in the medical decision making process. Course/Dx - Course Course Of Treatment: This pt states that she has had flu like symptoms since and myalgia that is currently rated a 10/10 in severity. She states that she has been having a fever since yesterday and was rated 100 F. She states that she also has a headache for 3 months daily in the absence or prior headache , somewhat concerning for intracranial process such as tumor, sore throat, nasal congestion, SOB, and a sore throat. She has no abnormalities on her PE. Her Strep Test came back negative. Her Brain CT shows no acute intracranial abnormalities. She will be dishcarged home with a Dx of headaches and pharyngitis. - Diagnoses Provider Diagnoses: Headache, Pharyngitis Discharge ED - Sign-Out/Discharge Documenting (check all that apply): Patient Departure - discharge Patient Received Moderate/Deep Sedation with Procedure: No - Discharge Plan Condition: Good Disposition: HOME Patient Education Materials: Pharyngitis (ED), Tension Headache (ED) Print Language: IRANIAN Referrals: Raf Russell MD [Primary Care Provider] - - Billing Disposition and Condition Condition: GOOD Disposition: Home - Attestation Statements Document Initiated by Nikolay: Yes Documenting Scribe: Juan Joshi Provider For Whom Nikolay is Documenting (Include Credential): Ryan Raygoza MD Scribe Attestation: Juan Thibodeaux, scribed for Ryan Raygoza MD on 07/02/19 at 1836. Scribe Documentation Reviewed: Yes Provider Attestation: The documentation as recorded by the Juan redd accurately reflects the service I personally performed and the decisions made by me, Ryan Raygoza MD Status of Scribe Document: Viewed
[2019-07-01 23:46] LABS: Rapid Strep Molecular Negative (Negative)
[2019-07-02 00:48] VITALS: BP 115/78
== END 2019-07-02 00:47 | disposition home or self-care (01) ==
LOC: ED 22:02
DX: R51 Headache (principal); J02.9 Acute pharyngitis, unspecified; R06.02 Shortness of breath; R50.9 Fever, unspecified; Z87.440 Personal history of urinary (tract) infections
CPT/HCPCS: 70450; 87651; 99282